=== PATIENT | male | born 1965 | race Caucasian/White ===

== ENCOUNTER 2018-01-14 10:38 | Observation (INO) | payer OTHER ==
[~2018-01-14] VITALS: Ht 177.8 cm; Wt 72.6 kg
--- NOTE | ~2018-01-14 | S ---
[facility] [place] [address] SURGICAL PATH RPT PROCEDURE Name: TEN HODGSON Room #: 170-4 VINITA Elizondo#: [id number] Admission: 01/14/18 Date of : 65 Discharge: 01/14/18 Report #: [id number] Path Case #: [id number] PATHOLOGY REPORT COLLECTION DATE: 01/14/2018 RECEIVED DATE: 01/14/2018 SUBMITTING PHYS: Dr. Lisandro Alfredo, DO OTHER PHYS: Dr. Deysi Wills SPECIMEN(S) RECEIVED: A.Appendix * * * * * * * * * * * * FINAL DIAGNOSIS: Appendix, appendectomy: - Marked acute appendicitis along with marked serositis. (IUV:mgr; 01/16/2018) PATHOLOGIST: Marilu Massey M.D. REPORT ELECTRONICALLY SIGNED BY: Marilu Massey M.D. DATE/TIME: 01/16/2018 16:14 * * * * * * * * * * * * GROSS PATHOLOGY: Received in formalin labeled "Ten Hodgson appendix," is an appendix measuring 8.3 cm in length and up to 1.4 cm in diameter with a moderate amount of attached mesoappendix. The serosal surface is pink-denis and smooth in appearance. Sectioning reveals a patent to dilated lumen filled with fibrinopurulent exudate. Newspaper Correspondent sections are submitted in cassette A1 and A2, with the proximal margin and bisected tip submitted in cassette A2. (CAA; 01/15/2018) CLINICAL HISTORY: Acute appendicitis INITIAL CPT CODE(S): A; 61958 Professional services performed by [facility] at [facility] [address], [place] [address] Technical services performed by [facility] at [address] [place] [address]. [facility] [address] [place] [address] SURGICAL PATH RPT PROCEDURE Name: TEN HODGSON Room #: 170-4 VINITA Elizondo#: [id number] Admission: 01/14/18 Date of : 65 Discharge: 01/14/18 Report #: [id number] Path Case #: [id number] [facility] [address] [address] PHONE: [phone] DIRECTOR: Naga De Leon M.D. * * * END OF REPORT * * *
--- NOTE | ~2018-01-14 | EKG ---
[address] [address] ELECTROCARDIOGRAM REPORT Name: BRYSON HODGSON Room #: 170-4 [facility] MSonyaRSonya#: [id number] Admission: 01/14/18 Attend Phys: Lisandro Veliz Discharge: Date of : 65 Report #: [id number] THIS REPORT FOR: //name// [facility] ED Test Date: 2018-01-14 Test Time: 12:47:43 Pat Name: BRYSON HODGSON Department: Room: 170 Gender: M Therapeutic Sales Specialist: YOUNG : 1965 Requested By: Zuleika Jeffrey Order Number: [id number] MD: David Francisco Measurements Intervals Catarina Rate: 61 P: 57 CO: 136 QRS: 60 QRSD: 90 T: 32 QT: 395 QTc: 398 Interpretive Statements Sinus rhythm No significant abnormality Compared to ECG 09/23/2008 11:00:32 No significant changes Electronically Signed On 01-14-2018 19:29:00 CDT by David Francisco [email or web address] <ELECTRONICALLY SIGNED> By: Dvaid Francisco MD, [facility] 01/14/18 1929 1247 46 David Francisco MD, FACC /EPI
[2018-01-14 10:38] VITALS: BP 159/100
[2018-01-14 11:24] LABS: URINE BILIRUBIN NEGATIVE (Negative); URINE BLOOD NEGATIVE (Negative); URINE CLARITY CLEAR; URINE COLOR YELLOW; URINE GLUCOSE-RANDOM* NEGATIVE (Negative); URINE KETONES NEGATIVE (Negative); URINE LEUKOCYTES NEGATIVE (Negative); URINE NITRITE NEGATIVE (Negative); URINE PROTEIN (DIPSTICK) NEGATIVE (Negative); URINE SPECIFIC GRAVITY <= 1.005 (1.005-1.035); URINE UROBILINOGEN 0.2 E.U./dl (0.2-1.0)
[2018-01-14 11:45] LABS: ABSOLUTE NEUTROPHILS 8.9 thou/uL (1.4-8.2); EOSINOPHILS 0.5 % (0.0-3.0); HEMATOCRIT 45.3 % (42.0-52.0); HEMOGLOBIN 15.6 gm/dL (14.0-18.0); LYMPHOCYTES 25.8 % (24.0-44.0); MCH 33.9 pg (26.0-34.0); MCHC 34.5 g/dL (28.0-37.0); MCV 98.5 fL (80.0-100.0); PLATELET COUNT 312 thou/uL (150-400); POLYS 66.7 % (36.0-66.0); RDW 12.8 % (10.5-14.5); WBC 13.3 thou/uL (4.0-11.0)
[2018-01-14 11:53] LABS: CALCIUM 9.7 mg/dL (8.5-10.1); POTASSIUM 4.1 mmol/L (3.5-5.1)
[2018-01-14 11:58] LABS: ALBUMIN 3.7 g/dL (3.4-5.0); DIRECT BILIRUBIN 0.1 mg/dL (<0.1-0.3); TOTAL BILIRUBIN 0.8 mg/dL (<0.1-1.0); TOTAL PROTEIN 7.6 g/dL (6.4-8.2)
[2018-01-14 13:13] VITALS: BP 146/92
[2018-01-14] MEDS ORDERED: HYDROCODONE-AP1 EAC6 PO (14:28)
[2018-01-14] MEDS ORDERED: ONDANSETRON HCL4 M2 PO (14:28)
[2018-01-14 14:57] VITALS: BP 146/92
== END 2018-01-14 14:37 | disposition home or self-care (01) ==
LOC: ER 10:38 → EROBS 12:31
PROVIDERS: Emergency Medicine
DX: K35.89 Other acute appendicitis (principal); D72.829 Elevated white blood cell count, unspecified; F17.210 Nicotine dependence, cigarettes, uncomplicated
CPT/HCPCS: 50010; 50101; 50249; 50411; 50555; 50558; 50739; 50740; 50962; 51489; 51975; 52265; 53307; 53310; 54022; 54118; 56525; 56526; 62110; 62900; 70005

== ENCOUNTER → 2021-09-11 | Outpatient (CLI) | payer OTHER ==
[~2021-09-11] MED LIST: HYDROCODONE-AP1 EAC6 PO; NOHOMEMEDICATIONS; ONDANSETRON HCL4 M2 PO
== END ==
LOC: LAB 09:09
PROVIDERS: ATTEND Student in an Organized Health Care Education/Training Program
DX: U07.1 COVID-19 (principal); Z01.812 Encounter for preprocedural laboratory examination

== ENCOUNTER → 2021-11-24 | Outpatient (CLI) | payer OTHER ==
[~2021-11-24] VITALS: Ht 172.7 cm; Wt 77.1 kg
--- NOTE | 2021-11-27 14:59 | P ---
[facility] [place] [address] PROCEDURE REPORT Name: BRYSON HODGSON Room #: REG JESSICA Elizondo#: [id number] Admission: 11/24/21 Attend Phys: Guilherme Zavala Discharge: Date of : 65 Report #: [id number] THIS REPORT FOR: cc: Deysi Wills MD, Kerry B. MD McElhinney, Christian C. MD ~ cc: Deysi Wills MD DATE OF SERVICE: 11/24/2021 PROCEDURE PERFORMED: Colonoscopy with biopsies. HISTORY OF PRESENT ILLNESS: The patient is a 56-year-old male with a history of adenomatous polyps in 2016. He presents today for routine followup. He also has a family history of colon cancer in a grandmother. Denies any symptoms at this time. DESCRIPTION OF PROCEDURE: The risks and benefits of the procedure were explained to the patient, those risks including but not limited to bleeding, perforation and the risk of sedation. He understood these risks and gave informed consent. Sedation was given using propofol per anesthesia. Next, a digital rectal exam showed small external hemorrhoids, otherwise normal. Next, using a standard Olympus colonoscope, the scope was placed in the patient's anus and advanced under direct vision to the cecum. The overall prep was excellent. The cecum and ileocecal valve were normal in appearance. In the ascending colon, a 4 mm sessile polyp was noted. This was removed with cold forceps, otherwise normal transverse and descending colon were normal. Multiple diverticula were noted in the sigmoid colon. No evidence of inflammation, otherwise normal. In the rectum, 2 polyps ranging from 4-6 mm in size were noted, both removed with a cold forceps. On retroflexion, a small internal hemorrhoid was noted. The scope was then withdrawn and the procedure terminated. The patient tolerated the procedure well. IMPRESSION: 1. Three small colonic polyps. 2. Sigmoid diverticulosis. 3. Internal and external hemorrhoids. 4. Otherwise, normal colonoscopy. RECOMMENDATIONS: 1. Await biopsy results. 2. Repeat colonoscopy in [address] [address] PROCEDURE REPORT Name: BRYSON HODGSON Room #: REG JESSICA Elizondo#: [id number] Admission: 11/24/21 Attend Phys: Guilherme Zavala Discharge: Date of : 65 Report #: [id number] Thank you for allowing me to participate in his care. <ELECTRONICALLY SIGNED> By: Guilherme Garrett MD 11/27/21 1459 [id number] [id number] Guilherme Garrett MD /nt
--- NOTE | 2021-11-28 10:07 | PATH ---
[facility] [place] [address] PATHOLOGY RPT PROCEDURE Name: TEN HODGSON Room #: REG JESSICA Elizondo#: [id number] Admission: 11/24/21 Date of : 65 Discharge: Report #: [id number] Path Case #: [id number] [facility] Accession Number: [id number] . 01 Material submitted: . PART A: colon - ASCENDING COLON POLYP. Modifiers: ascending PART B: rectum - RECTAL POLYP X2. Modifiers: X2 . 01 Clinical history: . COLONOSCOPY HISTORY OF POLYPS POLYP, DIVERTICULOSIS, HEMORRHOIDS . 02 Diagnosis: A. Colon biopsies, ascending colon polyp: - Consistent with hyperplastic polyp/prominent mucosal fold. . B. Colorectal biopsies, rectal polyp x 2: - Tubular adenoma (1). - Hyperplastic polyp (1). (RINKUM:marjorie; 11/27/2021) QTP 11/27/2021 1207 Local . 02 Comment: Sections of the ascending colon biopsy reveal segments of colonic mucosa consistent with hyperplastic polyp/prominent mucosal fold. There are no adenomatous changes or evidence of malignancy. . Sections of the rectal biopsy reveal a single segment of tubular adenoma and several segments of hyperplastic polyp. There is no high-grade dysplasia or evidence of malignancy. (JPM:pit; 11/27/2021) . 02 Electronically signed: . Edy Gibbons MD, Pathologist NPI- [id number] . 01 Gross description: . A. The specimen is received in formalin, labeled "Ten Hodgson, ascending colon polyp". Received are 2 segments of pale denis tissue measuring 0.3 cm in maximum dimensions. The specimen is entirely submitted in cassette A1. . B. The specimen is received in formalin, labeled "Ten Hodgson, rectal polyp". The source is additionally listed on the requisition as "rectal polyp x2". Received are multiple segments of pale denis tissue ranging in size from 0.1-0.3 cm in maximum dimensions. [place] [address] PATHOLOGY RPT PROCEDURE Name: TEN HODGSON Room #: REG [facility].#: [id number] Admission: 11/24/21 Date of : 65 Discharge: Report #: [id number] Path Case #: [id number] filtered and entirely submitted in cassette B1. ([facility]; 11/24/2021) NRI/NRI 11/24/20213 Local . 02 Pathologist provided ICD-10: D12.8, K63.5, Z86.010 . 02 CPT . 119768, 884270 Specimen Comment: A courtesy copy of this report has been sent to [phone], [phone] Specimen Comment: [id number] Specimen Comment: Report sent to / DR LUI Specimen Comment: A duplicate report has been generated due to demographic updates. Performed at: 01 [facility] [address], [place] [id number] MD Farhad Christine MD Phone: [phone] Performed at: 02 [facility] [address] [place], [place] [id number] MD Edy Gibbons MD Phone: [phone]
== END | disposition home or self-care (01) ==
LOC: GI 09-13 12:03
PROVIDERS: ATTEND Specialist
DX: Z12.11 Encounter for screening for malignant neoplasm of colon (principal); Z86.010 Personal history of colon polyps; Z80.0 Family history of malignant neoplasm of digestive organs; D12.8 Benign neoplasm of rectum; K57.30 Diverticulosis of large intestine without perforation or abscess without bleeding; K64.8 Other hemorrhoids; F17.210 Nicotine dependence, cigarettes, uncomplicated; K64.4 Residual hemorrhoidal skin tags; Z98.890 Other specified postprocedural states; Z79.899 Other long term (current) drug therapy; Z98.52 Vasectomy status; Z90.49 Acquired absence of other specified parts of digestive tract
CPT/HCPCS: 62110; 62900